=== PATIENT | male | born 1990 | race Caucasian/White ===

== ENCOUNTER 2016-11-17 09:40 | Emergency (ER) | payer OTHER | END 2016-11-17 10:56 | disposition home or self-care (01) | LOC: ER 09:40 | DX: R05 Cough (principal); H66.93 Otitis media, unspecified, bilateral; Z86.19 Personal history of other infectious and parasitic diseases; F17.210 Nicotine dependence, cigarettes, uncomplicated; Z88.0 Allergy status to penicillin; Z91.041 Radiographic dye allergy status | CPT/HCPCS: 36415; 71020; 86308; 87070; 87880; 99283 ==

== ENCOUNTER 2017-01-05 20:34 | Emergency (ER) | payer OTHER | END 2017-01-06 01:24 | disposition left against medical advice (07) | LOC: ER 20:34 | DX: Z53.21 Procedure and treatment not carried out due to patient leaving prior to being seen by health care provider (principal) | CPT/HCPCS: 99211 ==